=== PATIENT | female | born 1990 | race Caucasian/White ===

== ENCOUNTER 2022-04-03 09:46 | Observation (INO) | payer BC ==
[2022-04-03 10:55] VITALS: BP 128/74; PULSE 78; O2SAT 98
== END 2022-04-03 11:40 | disposition home or self-care (01) ==
LOC: MED SURG 09:46
PROVIDERS: ADMIT Family Medicine; ATTEND Family Medicine
DX: Z34.83 Encounter for supervision of other normal pregnancy, third trimester (principal); Z3A.38 38 weeks gestation of pregnancy
CPT/HCPCS: G0378

== ENCOUNTER 2022-04-07 00:23 | Inpatient (IN) | payer BC ==
[2022-04-07] MEDS ORDERED: TYLENOL EXTRA STRENGTH 500 MG PO PRN ×2 (05:00→10:23)
[2022-04-07] MEDS ORDERED: Zofran 4 MG/2 ML VIAL IV PRN (05:00)
[2022-04-07] MEDS ORDERED: OMNIPEN 2 GM ONE (05:02)
[2022-04-07] MEDS ORDERED: Sodium Chloride 100ML MINI-BAG PLUS 100 ML IV ONE (05:04)
[2022-04-07 05:31] LABS: Absolute Neutrophil Ct (ANC) 11.06 x10^3/uL (1.4-6.9); Basophil (Absolute #) 0.05 x10^3/uL (0-0.4); Eosinophil % 0.4 % (0.00-5.0); Eosinophil (Absolute #) 0.06 x10^3/uL (0-0.5); Hematocrit 34.5 % (35-47); Hemoglobin 11.7 g/dL (12.0-16.0); Lymphocytes % 11.8 % (24.0-44.0); Mean Cell Volume 84.8 fL (78-100); Mean Corpuscular Hemoglobin 28.7 pg (26-32); Mean Corpuscular Hgb Concent. 33.9 g/dL (32-36); Mean Platelet Volume 9.9 fL (7.5-11.0); Monocyte (Absolute #) 0.52 x10^3/uL (0.0-1.3); Monocytes % 3.8 % (0.0-12.0); Neutrophil % 81.9 % (36.0-66.0); Platelet Count 148 x10^3/uL (150-450); Red Blood Count 4.07 x10^6/uL (4.1-5.4); Red Cell Distribution Width 15.9 % (11.5-14.0); White Blood Count 13.5 x10^3/uL (4.0-10.5)
[2022-04-07 05:43] LABS: Crystals Unidentified 25-50 /HPF (NEGATIVE); Epithelial Cells RARE /HPF (FEW); Mucus SLIGHT /HPF (NEGATIVE)
[2022-04-07 05:48] LABS: Appearance CLEAR (CLEAR); Bilirubin NEGATIVE (NEGATIVE); Glucose NEGATIVE (NEGATIVE); Ketones TRACE (NEGATIVE); Nitrite NEGATIVE (NEGATIVE); Protein,Urine Dip NEGATIVE (Negative); Specific Gravity 1.025 (1.005-1.025); Urobilinogen 0.2 mg/dL (0-1)
[2022-04-07 05:49] LABS: RBC NEGATIVE Ery/ul (0-5)
[2022-04-07 05:50] LABS: Dipstick done @ ? MAIN LAB; Urine Cultured Indicated? NO
[2022-04-07 05:51] LABS: Amphetamine,Urine NEGATIVE (NEGATIVE); Barbiturate,Urine NEGATIVE (NEGATIVE); Benzodiazepine,Urine NEGATIVE (NEGATIVE); Cocaine,Urine NEGATIVE (NEGATIVE); Methadone,Urine NEGATIVE (NEGATIVE); Opiate,Urine NEGATIVE (NEGATIVE); PCP,Urine NEGATIVE (NEGATIVE); THC,Urine NEGATIVE (NEGATIVE)
[2022-04-07] MEDS ORDERED: PITOCIN 30 UNITS/ LR 500 ML 30 UNITS/500 ML PLAST..BAG IV SCH ×2 (06:00→08:00)
[2022-04-07] MEDS ORDERED: OMNIPEN 2 GM*** 2 G in Sodium Chloride 100ML MINI-BAG PLUS 100 ML IV ONE (06:00)
[2022-04-07] MEDS ORDERED: BRETHINE 1 MG/ML SQ PRN (06:00)
[2022-04-07] MEDS ORDERED: Lactated Ringers 1,000 ML IV SCH (06:00)
[2022-04-07 06:12] LABS: ABO TYPING A; Antibody Screen NEGATIVE (NEGATIVE); RH TYPING POSITIVE
[2022-04-07] MEDS ORDERED: Lactated Ringers 1,000 ML IV ONE (08:00)
[2022-04-07] MEDS ORDERED: FENTANYL 2 MCG-BUPIV 0.125%-NS 250 ML Epidur 250 ML EPIDURAL SCH (08:00)
[2022-04-07] MEDS ORDERED: Ephedrine Sulfate 50 MG/ML IV PRN (08:00)
[2022-04-07] MEDS ORDERED: XYLOCAINE 1% HCL 20 ML MDV IJ PRN (08:00)
[2022-04-07] MEDS ORDERED: OMNIPEN 1 GM*** 1 GM in Sodium Chloride 100ML MINI-BAG PLUS 100 ML IV SCH (10:00)
[2022-04-07] MEDS ORDERED: TUCKS TP PRN (10:23)
[2022-04-07] MEDS ORDERED: CORTISONE 1% CREAM TP PRN (10:23)
[2022-04-07] MEDS ORDERED: Anucort-HC SUPPOSITORY PR PRN (10:23)
[2022-04-07] MEDS ORDERED: Dulcolax 10 MG SUPP PR PRN (10:23)
[2022-04-07] MEDS ORDERED: Dermoplast Spray TP PRN (10:23)
[2022-04-07] MEDS ORDERED: Ambien 10 MG PO PRN (10:23)
[2022-04-07] MEDS ORDERED: LANSINOH 40 GM TOP PRN (10:23)
[2022-04-07] MEDS ORDERED: Mylicon 80MG PO PRN (10:23)
[2022-04-07] MEDS ORDERED: Adacel Vial IM ONE (13:00)
[2022-04-07] MEDS: MOTRIN 400 MG PO PRN (20:19)
[2022-04-07] MEDS: Docusate Sodium 100 MG PO SCH (20:20)
[2022-04-08] MEDS: MOTRIN 400 MG PO PRN ×2 (03:08→15:37)
[2022-04-08 03:28] VITALS: O2SAT 98
[2022-04-08 05:07] LABS: Absolute Neutrophil Ct (ANC) 10.13 x10^3/uL (1.4-6.9); Basophil (Absolute #) 0.05 x10^3/uL (0-0.4); Eosinophil % 0.5 % (0.00-5.0); Eosinophil (Absolute #) 0.07 x10^3/uL (0-0.5); Lymphocyte (Absolute #) 1.98 x10^3/uL (1.0-4.6); Mean Cell Volume 85.6 fL (78-100); Mean Corpuscular Hemoglobin 29.4 pg (26-32); Mean Corpuscular Hgb Concent. 34.4 g/dL (32-36); Mean Platelet Volume 10.2 fL (7.5-11.0); Monocytes % 5.3 % (0.0-12.0); Platelet Count 155 x10^3/uL (150-450); Red Blood Count 3.74 x10^6/uL (4.1-5.4); Red Cell Distribution Width 15.9 % (11.5-14.0); White Blood Count 13.2 x10^3/uL (4.0-10.5)
--- NOTE | 2022-04-08 07:59 | PCM.NOTE ---
Date and Time: 04/08/22 0758 Subjective Assessment: doing great, mild lochia, pain controlled. tolerating po, desires tubal Objective Exam General Appearance: no apparent distress, alert Neurologic Exam: alert, oriented x 3 Respiratory Exam: normal breath sounds, lungs clear, No respiratory distress Cardiovascular Exam: regular rate/rhythm, normal heart sounds Gastrointestinal/Abdomen Exam: soft, No tenderness, No mass OBJECTIVE DATA Vital Signs: Vital Signs - 24 hr Temp Pulse Resp BP BP Pulse Ox 04/08/22 03:00 97.9 F 81 20 106/59 98 04/07/22 20:00 98.4 F 77 18 96/51 97 04/07/22 16:00 20 04/07/22 14:00 75 20 116/58 04/07/22 13:00 76 20 117/58 04/07/22 12:20 76 20 117/58 04/07/22 12:00 82 20 114/56 04/07/22 11:40 76 18 105/56 04/07/22 11:25 69 20 110/55 04/07/22 11:10 96 H 20 132/50 04/07/22 10:45 77 20 143/64 04/07/22 10:30 83 20 126/65 04/07/22 10:15 86 20 125/66 04/07/22 10:00 87 18 121/65 98 04/07/22 09:45 87 18 130/62 98 04/07/22 09:30 83 18 127/82 04/07/22 09:15 70 18 134/66 04/07/22 09:00 74 18 142/65 04/07/22 08:45 71 18 154/70 04/07/22 08:30 67 18 137/67 04/07/22 08:15 88 22 128/66 04/07/22 08:00 76 20 108/55 Pain Assessment - Last Documented Pain Intensity [Lower Anterior 5 ] Pain Intensity 0 Pain Scale Used 0-10 Pain Scale Intake and Output: Intake & Output 04/05/22 04/06/22 04/07/22 04/08/22 11:59 11:59 11:59 11:59 Intake Total 1000 2000 Balance 1000 2000 Weight 108.409 kg Lab Results: Lab Results-Last 24 Hours 04/08/22 Range/Units 04:00 WBC 13.2 H (4.0-10.5) x10^3/uL RBC 3.74 L (4.1-5.4) x10^6/uL Hgb 11.0 L (12.0-16.0) g/dL Hct 32.0 L (35-47) % MCV 85.6 (78-100) fL MCH 29.4 (26-32) pg MCHC 34.4 (32-36) g/dL RDW 15.9 H (11.5-14.0) % Plt Count 155 (150-450) x10^3/uL MPV 10.2 (7.5-11.0) fL Gran % 77.0 H (36.0-66.0) % Immature Gran % (Auto) 1.8 H (0.00-0.4) % Nucleat RBC Rel Count 0.0 (0.00-0.1) % Eos # (Auto) 0.07 (0-0.5) x10^3/uL Immature Gran # (Auto) 0.24 H (0.00-0.03) x10^3u/L Absolute Lymphs (auto) 1.98 (1.0-4.6) x10^3/uL Absolute Monos (auto) 0.70 (0.0-1.3) x10^3/uL Absolute Nucleated RBC 0.00 (0.00-0.01) x10^3u/L Lymphocytes % 15.0 L (24.0-44.0) % Monocytes % 5.3 (0.0-12.0) % Eosinophils % 0.5 (0.00-5.0) % Basophils % 0.4 (0.0-0.4) % Absolute Granulocytes 10.13 H (1.4-6.9) x10^3/uL Basophils # 0.05 (0-0.4) x10^3/uL Assessment/Plan (1) Vaginal delivery Current Visit: No Status: Acute Assessment & Plan: routine care (2) Request for sterilization Current Visit: Yes Status: Acute Assessment & Plan: will refer for lap tubal Code(s): Z30.2 - ENCOUNTER FOR STERILIZATION
[2022-04-08 10:44] LABS: HBsAg Screen Negative (Negative)
[2022-04-08] MEDS: FERREX 150 PO SCH (11:03)
[2022-04-08] MEDS: Docusate Sodium 100 MG PO SCH ×2 (11:03→21:20)
[2022-04-09] MEDS: MOTRIN 400 MG PO PRN (06:13)
--- NOTE | 2022-04-09 09:34 | PCM.DS ---
Discharge Summary Date of Admission: 04/07/22 06:00 Admitting Physician: DEMARIO DALE Consults: Consults on Case 04/07/22 08:00 Notify Anesthesia Provider PRN 04/07/22 14:01 Navigation ONCE Primary Care Provider: DEMARIO DALE Allergies Allergies cephalexin monohydrate [From Keflex] Adverse Reaction (Mild, Verified 04/07/22 05:13) Vomiting NOT TRUE ALLERGY, PT JUST PERFERS NOT TO TAKE CAUSE IT MAKES HER NAUSEOUS Hospital Summary - Hospital Course Hospital Course: patient induced at 39wks elective induction, GBS+ received ampicillin, delivered a term viable male infant with no complications. , well bonded and doing great. - Vitals & Intake/Output Vital Signs: Vital Signs Temperature 98.2 F 04/09/22 05:30 Pulse Rate 101 H 04/08/22 21:15 Respiratory Rate 18 04/09/22 05:30 Blood Pressure 121/57 04/08/22 21:15 O2 Sat by Pulse Oximetry 98 04/08/22 09:00 Intake & Output: Intake & Output 04/06/22 04/07/22 04/08/22 04/09/22 11:59 11:59 11:59 11:59 Intake Total 1000 1999 175 Balance 1000 1999 175 Weight 108.409 kg - Lab Result Diagrams: 04/08/22 04:00 Lab Results-Last 24 Hrs: Lab Results-Last 24 Hours 04/07/22 Range/Units 05:20 Hep Bs Antigen Negative (Negative) Discharge Exam General Appearance: no apparent distress Neurologic Exam: alert, oriented x 3 Respiratory Exam: normal breath sounds, lungs clear, No respiratory distress Cardiovascular Exam: regular rate/rhythm, normal heart sounds Gastrointestinal/Abdomen Exam: soft, other (fundus firm, u/2), No tenderness, No mass Extremity Exam: normal inspection, normal range of motion Skin Exam: normal color, warm, dry Final Diagnosis/Problem List - Final Discharge Diagnosis/Problem (1) Vaginal delivery Current Visit: No Status: Acute (2) Request for sterilization Current Visit: Yes Status: Acute Code(s): Z30.2 - ENCOUNTER FOR STERILIZATION - Discharge Disposition: Home, Self-Care Condition: Stable Prescriptions: Continue Vits W-Ca,Fe,FA(<1Mg) [] 1 each PO DAILY Follow up with: DEMARIO DALE MD [Primary Care Provider] -
[2022-04-09] MEDS: FERREX 150 PO SCH (10:47)
[2022-04-09] MEDS: Docusate Sodium 100 MG PO SCH (10:47)
[2022-04-09 12:45] VITALS: BP 109/59; PULSE 110
== END 2022-04-09 11:38 | disposition home or self-care (01) | DRG 807 ==
LOC: OB 04:55 → OBSVTOIN 06:00 → OB 06:00
PROVIDERS: ADMIT Family Medicine; ATTEND Family Medicine
PROC: 10E0XZZ Delivery of Products of Conception, External Approach (ICD-10-PCS; principal; 2022-04-07)
DX: O80 Encounter for full-term uncomplicated delivery (principal); Z37.0 Single live birth; Z3A.39 39 weeks gestation of pregnancy; Z20.828 Contact with and (suspected) exposure to other viral communicable diseases
CPT/HCPCS: 36415; 80307; 81015; 85025; 86850; 86900; 86901; 87340; 90471; 90715; J0290; J2590; A9270-GY

== ENCOUNTER 2022-05-20 05:44 | Day surgery (SDC) | payer BC ==
[2022-05-20] MEDS ORDERED: Sensorcaine 0.25% 10 ML ONE (06:22)
[2022-05-20] MEDS ORDERED: Lactated Ringers 1,000 ML IV SCH ×2 (06:30)
[2022-05-20] MEDS ORDERED: Pepcid 20 MG VIAL IV ONE (06:52)
[2022-05-20] MEDS ORDERED: Versed 2 MG/2 ML Injection IV PRN (06:52)
[2022-05-20] MEDS ORDERED: Reglan 10 MG/2 ML IV ONE (06:52)
[2022-05-20] MEDS ORDERED: CLINDAMYCIN-D5W 900 MG/50 ML*** 900 MG/50 ML BAG IV ONE (07:31)
[2022-05-20] MEDS ORDERED: BRIDION 200MG/2ML IV ONE (07:41)
[2022-05-20] MEDS ORDERED: Decadron 4 MG INJ ONE (07:41)
[2022-05-20] MEDS ORDERED: Zofran 4 MG/2 ML VIAL ONE (07:41)
[2022-05-20] MEDS ORDERED: Xylocaine-Mpf 2% 5 Ml Vial ONE (07:41)
[2022-05-20] MEDS ORDERED: DIPRIVAN 200 MG/20 ML IV ONE (07:41)
[2022-05-20] MEDS ORDERED: Zemuron 100 MG/10 ML ONE (07:41)
[2022-05-20] MEDS ORDERED: Pre-Attached Lta Kit TP ONE (07:42)
[2022-05-20] MEDS ORDERED: SUBLIMAZE 100 MCG/2 ML ONE ×2 (07:43→09:00)
[2022-05-20] MEDS ORDERED: ATROPINE SULFATE 1MG ONE (07:57)
[2022-05-20] MEDS ORDERED: Ephedrine Sulfate 50 MG/ML ONE (07:59)
[2022-05-20] MEDS ORDERED: CLINDAMYCIN-D5W 900 MG/50 ML*** 900 MG/50 ML BAG IV SCH (08:00)
[2022-05-20] MEDS ORDERED: DEXMEDETOMIDINE 80 MCG/20ML-NS IV ONE (08:08)
[2022-05-20] MEDS ORDERED: TORAdol 30 mg Injection ONE (08:50)
[2022-05-20 10:43] VITALS: O2SAT 97
[2022-05-20 10:47] VITALS: BP 115/87; PULSE 78
[2022-05-20 14:53] LABS: Appearance CLEAR (CLEAR); Bilirubin NEGATIVE (NEGATIVE); Glucose NEGATIVE (NEGATIVE)
[2022-05-20 14:54] LABS: Ketones NEGATIVE (NEGATIVE); Nitrite NEGATIVE (NEGATIVE); Protein,Urine Dip NEGATIVE (Negative); RBC TRACE-INTACT Ery/ul (0-5); Urobilinogen 0.2 mg/dL (0-1)
[2022-05-20 16:58] LABS: Dipstick done @ ? MAIN LAB
--- NOTE | 2022-05-21 08:55 | OP ---
SURGERY DATE/TIME: 05/20/2022 0737 PREOPERATIVE DIAGNOSIS: Multiparity desiring tubal sterilization. POSTOPERATIVE DIAGNOSIS: Multiparity desiring tubal sterilization. PROCEDURE: Laparoscopic tubal sterilization via Falope ring application as well as bipolar sterilization. SURGEON: Mustapha Lopez D.O. [facility] CONSULTANT: Solange Humphries electronic tech. ANESTHESIA: General. ESTIMATED BLOOD LOSS: Minimal. COMPLICATIONS: None. INDICATIONS: The risks, benefits, indications and alternatives of the procedure were reviewed with the patient prior to the procedure and desires to have this procedure as a possible means to alleviate her current medical condition. DESCRIPTION OF PROCEDURE AND FINDINGS: From this point the patient is taken to the operating room, given general sedation, placed in dorsal lithotomy position, prepped and draped in the usual sterile fashion. A weighted speculum is then placed in the patient's vagina and the anterior lip of the cervix is grasped with a single tooth tenaculum. From this point a uterine manipulator was then inserted in through the endocervical canal as a means to manipulate the uterus. Attention was then turned to the patient's abdomen where a 5 mm skin incision was made in the umbilical fold. A 5 mm trocar and sleeve were advanced under direct visualization where pneumoperitoneum was obtained with 4 liters of CO2 gas. An additional incision was made approximately 2 cm above the symphysis pubis where an 8 mm incision was made and an 8 mm trocar and sleeve were advanced under direct visualization. A survey of the patient's pelvis and abdomen revealed entirely normal anatomy. From this point the uterus is elevated and the left fallopian tube was identified. The Falope ring applicator was then placed on the left fallopian tube on the isthmic region however was not placed in the correct position secondary to failed instrumentation. From this point the bipolar instrument was used and coagulated on three contiguous regions on the fallopian tube and was done so without complication. Hemostasis was obtained. From this point Falope ring applicator was reloaded and attempted on the right fallopian tube on isthmic region and was displaced on the tube with a good size knuckle of tube. However, there did appear to be bleeding within the mesosalpinx and bipolar was used to coagulate it on the right mesosalpinx and hemostasis was obtained. From this point, all instruments were removed from the patient's abdominal region and the incisions were closed with 4-0 Monocryl suture. The patient was then taken out of the dorsal lithotomy position, was taken out of anesthesia and was then taken to the recovery room in stable condition.
== END 2022-05-20 10:30 | disposition home or self-care (01) ==
LOC: SDC 05:44
PROVIDERS: ATTEND Obstetrics & Gynecology
DX: Z30.2 Encounter for sterilization (principal)
CPT/HCPCS: 81001; 81025; 87086; 96374; 96375; J0461; J1100; J1885; J2250; J2405; J2704; J3010

== ENCOUNTER 2024-07-10 09:08 | Emergency (ER) | payer OTHER ==
--- NOTE | 2024-07-10 09:15 | ERPHSYRPT ---
- History of Present Illness Time Seen by Provider: 07/10/24 09:14 Source: patient, family Exam Limitations: no limitations Physician History: Pt has had Nausea a couple of weeks, and past 2 days urinary burning . hematuria, and right flank/back pain. She went to urgent care and they confirmed this but needed authorization for a CT and advised her to ER if symptoms increased. So this is what happened and she reports here this am for more eval/Tx. Normal mental status and neuro exam. Abd soft nontender without peritoneal signs, distension , or masses. chest clear. Ht reg without M. No blood thinners or bleeding disorders known to pt. No Hx of trauma. Discussed risks/benefits with pt and family of Tx Toradol, Zofran, CT Abd, UA, HCG, Lactate, CBC, CMP, Bharti, Lipase, and they wish to proceed. So these are ordered. Results discussed with pt and family. Timing/Duration: day(s) Severity: moderate Associated Symptoms: nausea, vomiting, abdominal pain Allergies/Adverse Reactions: cephalexin monohydrate [From Keflex] Adverse Reaction (Mild, Verified 07/10/24 09:24) Vomiting NOT TRUE ALLERGY, PT JUST PERFERS NOT TO TAKE CAUSE IT MAKES HER NAUSEOUS Hx Tetanus, Diphtheria Vaccination/Date Given: Yes Hx Influenza Vaccination/Date Given: No Hx Pneumococcal Vaccination/Date Given: No - Review of Systems Constitutional: No Fever, No Chills Eyes: No Symptoms Ears, Nose, & Throat: No Symptoms Respiratory: No Cough, No Dyspnea Cardiac: No Chest Pain, No Edema, No Syncope Abdominal/Gastrointestinal: Abdominal Pain, Nausea, Vomiting, Diarrhea Genitourinary Symptoms: Dysuria, Frequency, Hematuria, Flank Pain Musculoskeletal: Back Pain, No Neck Pain, No Fall, No Injury Skin: No Rash Neurological: No Dizziness, No Focal Weakness, No Sensory Changes Psychological: No Symptoms Endocrine: No Symptoms Hematologic/Lymphatic: No Symptoms Immunological/Allergic: No Symptoms All Other Systems: Reviewed and Negative - Past Medical History Pertinent Past Medical History: Yes Neurological History: Migraines ENT History: No Pertinent History Cardiac History: No Pertinent History Respiratory History: No Pertinent History Endocrine Medical History: No Pertinent History Musculoskeletal History: No Pertinent History GI Medical History: No Pertinent History History: No Pertinent History Psycho-Social History: No Pertinent History Female Reproductive Disorders: No Pertinent History, Endometriosis - Past Surgical History Past Surgical History: Yes Neuro Surgical History: No Pertinent History Cardiac: No Pertinent History Respiratory: No Pertinent History Gastrointestinal: Cholecystectomy Genitourinary: No Pertinent History Musculoskeletal: No Pertinent History Female Surgical History: Other Other Surgical History: surgery on fallopian tubes, endometriosis on right tube. lasik eye surgery - Female History Hx Last Menstrual Period: 2 DAYS AGO - Social History Smoking Status: Never smoker Exposure to second hand smoke: No Drug Use: none Patient Lives Alone: Yes - Nursing Vital Signs Nursing Vital Signs: Initial Vital Signs Temperature 97.2 F 07/10/24 09:13 Pulse Rate 73 07/10/24 09:13 Blood Pressure 127/93 07/10/24 09:13 O2 Sat by Pulse Oximetry 99 07/10/24 09:13 Pain Scale Pain Intensity 0 - Physical Exam General Appearance: no apparent distress, alert Eye Exam: PERRL/EOMI, eyes nml inspection Ears, Nose, Throat Exam: normal ENT inspection, TMs normal, pharynx normal, moist mucous membranes Neck Exam: normal inspection, non-tender, supple, full range of motion Respiratory Exam: normal breath sounds, lungs clear, No respiratory distress Cardiovascular Exam: regular rate/rhythm, normal heart sounds, normal peripheral pulses Gastrointestinal/Abdomen Exam: soft, normal bowel sounds, No tenderness, No distention, No mass, No guarding, No pulsatile mass, No rebound Pelvic Exam: deferred Rectal Exam: deferred Back Exam: normal inspection, normal range of motion, No CVA tenderness, No vertebral tenderness Extremity Exam: normal inspection, normal range of motion, pelvis stable Neurologic Exam: alert, oriented x 3, cooperative, normal mood/affect, nml cerebellar function, nml station & gait, sensation nml, No motor deficits Skin Exam: normal color, warm, dry, No rash Lymphatic Exam: No adenopathy SpO2 Interpretation: normal SpO2: 99 O2 Delivery: Room Air - CT Exams Abdomen/Pelvis CT Interpretation: Tele-radiologist Report, Normal Appendix, Other ( heptomegally, splenomegally. umb hernia) Ordered Tests: Active Orders 24 hr Category Date Time Status ABDOMEN AND PELVIS W/0 CONTRAS [CT] Stat Exams 07/10/24 11:02 Completed AMYLASE Stat Lab 07/10/24 10:38 Completed CBC W DIFF Stat Lab 07/10/24 10:38 Completed CMP Stat Lab 07/10/24 10:38 Completed CULTURE,URINE Stat Lab 07/10/24 09:55 Received HCG QUALITATIVE, SERUM Stat Lab 07/10/24 10:38 Completed LIPASE Stat Lab 07/10/24 10:38 Completed Lactic Acid Stat Lab 07/10/24 10:35 Completed UA W/RFX UR CULTURE Stat Lab 07/10/24 09:55 Completed Medication Summary Discontinued Medications Generic Name Dose Route Start Last Admin Trade Name Julio Cesarq PRN Reason Stop Dose Admin Ketorolac Tromethamine 60 mg 07/10/24 10:14 07/10/24 10:26 Ketorolac Tromethamine 30 Mg/Ml Inj IM 07/10/24 10:15 60 mg STAT ONE Administration Ketorolac Tromethamine Confirm 07/10/24 10:26 Ketorolac Tromethamine 30 Mg/Ml Inj Administered 07/10/24 10:27 Dose 60 mg .ROUTE .STK-MED ONE Levofloxacin 250 mg 07/10/24 10:57 07/10/24 11:07 Levofloxacin 250 Mg Tab PO 07/10/24 10:58 250 mg STAT ONE Administration Levofloxacin Confirm 07/10/24 11:07 Levofloxacin 250 Mg Tab Administered 07/10/24 11:08 Dose 250 mg .ROUTE .STK-MED ONE Ondansetron HCl 4 mg 07/10/24 10:10 07/10/24 10:27 Zofran 4 Mg/Udtablet Orally Disintegrating PO 07/10/24 10:11 4 mg STAT ONE Administration Ondansetron HCl Confirm 07/10/24 10:26 Zofran 4 Mg/Udtablet Orally Disintegrating Administered 07/10/24 10:27 Dose 4 mg .ROUTE .STK-MED ONE Lab/Rad Data: Laboratory Result Diagrams 07/10/24 10:38 07/10/24 10:38 Laboratory Results 07/10/24 07/10/24 07/10/24 Range/Units 10:38 10:38 10:38 WBC 7.6 (3.98-10.04) x10^3/uL RBC 5.30 H (3.93-5.22) x10^6/uL Hgb 15.0 (11.2-15.7) g/dL Hct 44.1 (34.1-44.9) % MCV 83.2 (79.4-94.8) fL MCH 28.3 (25.6-32.2) pg MCHC 34.0 (32.2-35.5) g/dL RDW 13.4 (11.7-14.4) % Plt Count 170 L (182-369) x10^3/uL MPV 10.3 (9.4-12.3) fL Gran % 73.8 H (34.0-71.1) % Immature Gran % (Auto) 0.3 (0.001-0.429) % Nucleat RBC Rel Count 0.0 (0.00-0.2) % Eos # (Auto) 0.11 (0.04-0.36) x10^3/uL Immature Gran # (Auto) 0.02 (0.001-0.031) x10^3u/L Absolute Lymphs (auto) 1.46 (1.18-3.74) x10^3/uL Absolute Monos (auto) 0.35 (0.24-0.86) x10^3/uL Absolute Nucleated RBC 0.00 (0.00-0.012) x10^3u/L Lymphocytes % 19.2 L (19.3-51.7) % Monocytes % 4.6 L (4.7-12.5) % Eosinophils % 1.4 (0.7-5.8) % Basophils % 0.7 (0.1-1.2) % Absolute Granulocytes 5.61 (1.56-6.13) x10^3/uL Basophils # 0.05 (0.01-0.08) x10^3/uL Sodium 142 (135-145) mmol/L Potassium 4.6 (3.5-5.1) mmol/L Chloride 108 H (98-107) mmol/L Carbon Dioxide 21 L (22-30) mmol/L Anion Gap 17.1 H (5-15) MEQ/L BUN 9 (7-17) mg/dL Creatinine 0.77 (0.52-1.04) mg/dL Estimated GFR 105.0 ML/MIN Glucose 111 H (74-106) mg/dL Lactic Acid (0.4-2.0) Calcium 9.3 (8.4-10.2) mg/dL Total Bilirubin 0.70 (0.2-1.3) mg/dL AST 68 H (14-36) U/L ALT 82 H (0-35) U/L Alkaline Phosphatase 47 (38-126) U/L Serum Total Protein 7.8 (6.3-8.2) g/dL Albumin 4.6 (3.5-5.0) g/dL Amylase 100 (30-110) U/L Lipase 86 (23-300) U/L Serum HCG, Qual NEGATIVE (NEGATIVE) Urine Color (Yellow) Urine Appearance (Clear) Urine pH (4.6-8.0) Ur Specific [place] (1.005-1.030) Urine Protein (Negative) Urine Glucose (UA) (Negative) mg/dL Urine Ketones (Negative) Urine Blood (Negative) Urine Nitrite (Negative) Urine Bilirubin (Negative) Urine Urobilinogen (0.2) mg/dL Ur Leukocyte Esterase (Negative) U Hyaline Cast (Auto) (0-2) /LPF Urine Microscopic RBC (0-5) /HPF Urine Microscopic WBC (0-5) /HPF Ur Epithelial Cells (None Seen) /HPF Urine Bacteria (None Seen) /HPF Urine Culture Reflexed (NO) 07/10/24 07/10/24 Range/Units 10:35 09:55 WBC (3.98-10.04) x10^3/uL RBC (3.93-5.22) x10^6/uL Hgb (11.2-15.7) g/dL Hct (34.1-44.9) % MCV (79.4-94.8) fL MCH (25.6-32.2) pg MCHC (32.2-35.5) g/dL RDW (11.7-14.4) % Plt Count (182-369) x10^3/uL MPV (9.4-12.3) fL Gran % (34.0-71.1) % Immature Gran % (Auto) (0.001-0.429) % Nucleat RBC Rel Count (0.00-0.2) % Eos # (Auto) (0.04-0.36) x10^3/uL Immature Gran # (Auto) (0.001-0.031) x10^3u/L Absolute Lymphs (auto) (1.18-3.74) x10^3/uL Absolute Monos (auto) (0.24-0.86) x10^3/uL Absolute Nucleated RBC (0.00-0.012) x10^3u/L Lymphocytes % (19.3-51.7) % Monocytes % (4.7-12.5) % Eosinophils % (0.7-5.8) % Basophils % (0.1-1.2) % Absolute Granulocytes (1.56-6.13) x10^3/uL Basophils # (0.01-0.08) x10^3/uL Sodium (135-145) mmol/L Potassium (3.5-5.1) mmol/L Chloride (98-107) mmol/L Carbon Dioxide (22-30) mmol/L Anion Gap (5-15) MEQ/L BUN (7-17) mg/dL Creatinine (0.52-1.04) mg/dL Estimated GFR ML/MIN Glucose (74-106) mg/dL Lactic Acid 1.5 (0.4-2.0) Calcium (8.4-10.2) mg/dL Total Bilirubin (0.2-1.3) mg/dL AST (14-36) U/L ALT (0-35) U/L Alkaline Phosphatase (38-126) U/L Serum Total Protein (6.3-8.2) g/dL Albumin (3.5-5.0) g/dL Amylase (30-110) U/L Lipase (23-300) U/L Serum HCG, Qual (NEGATIVE) Urine Color Yellow (Yellow) Urine Appearance Clear (Clear) Urine pH 5.5 (4.6-8.0) Ur Specific [place] 1.020 (1.005-1.030) Urine Protein Negative (Negative) Urine Glucose (UA) Negative (Negative) mg/dL Urine Ketones Negative (Negative) Urine Blood Negative (Negative) Urine Nitrite Negative (Negative) Urine Bilirubin Negative (Negative) Urine Urobilinogen 0.2 (0.2) mg/dL Ur Leukocyte Esterase Small A (Negative) U Hyaline Cast (Auto) NONE SEEN (0-2) /LPF Urine Microscopic RBC 0-2 (0-5) /HPF Urine Microscopic WBC 11-20 A (0-5) /HPF Ur Epithelial Cells Moderate A (None Seen) /HPF Urine Bacteria Few A (None Seen) /HPF Urine Culture Reflexed YES (NO) - Progress Progress: improved, re-examined Progress Note: 07/10/24 10:59 Discussed risk/benefit of levaquin Tx with pt and family and they wish to proceed. Advised pt and family of elevated LFTs, decreased platelets, slight elevation DBP, non-fasting glucose, and need for f/u PMDs. 07/10/24 11:52 07/10/24 11:54 Pain improved after Tx. 07/10/24 12:53 Discussed with pt and family that we have not yet determined a cause for her symptoms but will treat UTI that we did find and that additional pathology may be evolving undetected THey wish outpt f/u with PMD without further eval in ER or hospital admission at this time and have the capacity to make this choice. 07/10/24 12:55 Counseled pt/family regarding: lab results, diagnosis, need for follow-up, rad results Medical Desision Making - Independent Historian Additional History obtained from: Family - Discussion of managment Reviewed:: Test results, Need for additional workup Agreed on:: Treatment plan, need for follow-up - Diagnostic Testing Diagnostic test were ordered, analyzed, and reviewed by me: Yes Radiological Interpretation: Interpreted by me, Reviewed by me, Teleradiologist Report - Risk of complications The pt has a mod risk of morbidity or mortality based on: Need for prescription drug management The pt has a high risk of morbidity or mortality based on: Decision regarding hospitilization or escalation of hosp level of care - Departure Departure Disposition: Home Clinical Impression: right flank pain unknown etiology, UTI (urinary tract infection), Fatty liver, Thrombocytopenia, Elevated liver enzymes Condition: Good Critical Care Time: No Referrals: DEMARIO DALE MD [Primary Care Provider] - Follow up/PCP as directed Instructions: Flank Pain, Urinary Tract Infection, Adult ED, Metabolic dysfunction-associated steatotic liver disease, Kidney Stones (DC) Additional Instructions: ALthough we have not determined a precise cause for your symptoms , we are treating your urinary infection. Since there may be other conditions developing it is important to complete your workup and followup with your this week. Also for your low platelets, elevated liver tests, fatty liver, possible kidney stones. Return meantime if not improving or any symptoms of concern such as vomiting or fever or other concerns. Prescriptions: Levofloxacin [Levofloxacin 500 MG Tablet] 500 mg PO QAM #10 tablet
[2024-07-10 09:24] VITALS: PULSE 73; TEMP 97.2
[2024-07-10] MEDS: TORAdol 30 mg Injection IM ONE (10:26)
[2024-07-10] MEDS ORDERED: TORAdol 30 mg Injection ONE (10:26)
[2024-07-10] MEDS ORDERED: ZOFRAN ODT 4 MG ONE (10:26)
[2024-07-10] MEDS: ZOFRAN ODT 4 MG PO ONE (10:27)
[2024-07-10 10:39] LABS: Absolute Neutrophil Ct (ANC) 5.61 x10^3/uL (1.56-6.13); BASOPHIL % 0.7 % (0.1-1.2); Basophil (Absolute #) 0.05 x10^3/uL (0.01-0.08); Eosinophil % 1.4 % (0.7-5.8); Eosinophil (Absolute #) 0.11 x10^3/uL (0.04-0.36); Hematocrit 44.1 % (34.1-44.9); IMMATURE GRAN # 0.02 x10^3u/L (0.001-0.031); IMMATURE GRAN % 0.3 % (0.001-0.429); Lymphocyte (Absolute #) 1.46 x10^3/uL (1.18-3.74); Lymphocytes % 19.2 % (19.3-51.7); Mean Cell Volume 83.2 fL (79.4-94.8); Mean Corpuscular Hemoglobin 28.3 pg (25.6-32.2); Mean Platelet Volume 10.3 fL (9.4-12.3); Monocyte (Absolute #) 0.35 x10^3/uL (0.24-0.86); Monocytes % 4.6 % (4.7-12.5); Neutrophil % 73.8 % (34.0-71.1); Platelet Count 170 x10^3/uL (182-369); Red Cell Distribution Width 13.4 % (11.7-14.4); White Blood Count 7.6 x10^3/uL (3.98-10.04)
[2024-07-10 10:50] LABS: HCG SERUM TEST NEGATIVE (NEGATIVE)
[2024-07-10 10:51] LABS: Appearance Clear (Clear); Bacteria Few /HPF (None Seen); Bilirubin Negative (Negative); Blood Negative (Negative); Epithelial Cells Moderate /HPF (None Seen); Glucose, Urine Negative (Negative); Hyaline Casts NONE SEEN /LPF (0-2); Ketones Negative (Negative); Leukocyte Esterase Small (Negative); Nitrite Negative (Negative); Ph 5.5 (4.6-8.0); Protein,Urine Dip Negative (Negative); RBC 0-2 /HPF (0-5); Urobilinogen 0.2 mg/dL (0.2)
[2024-07-10 10:52] LABS: ALBUMIN 4.6 g/dL (3.5-5.0); ANION GAP 17.1 MEQ/L (5-15); BILIRUBIN,TOTAL 0.7 mg/dL (0.2-1.3); Calcium 9.3 mg/dL (8.4-10.2); Creatinine 1 0.77 mg/dL (0.52-1.04); Potassium 4.6 mmol/L (3.5-5.1); Total Protein 7.8 g/dL (6.3-8.2)
[2024-07-10] MEDS: Levofloxacin 250MG Tablet PO ONE (11:07)
[2024-07-10] MEDS ORDERED: Levofloxacin 250MG Tablet ONE (11:07)
--- NOTE | 2024-07-10 11:48 | XRAY ---
CLINICAL HISTORY: Abd pain COMPARISON: prior 02/10/2013 TECHNIQUE: CT scan of the abdomen and pelvis was performed with & without IV contrast. Coronal and sagittal reconstructive images were also obtained.One of the following dose-reduction techniques was utilized for this exam. Automated exposure control, adjustment of the mA and/or kV according to patient size, and use of iterative reconstruction. FINDINGS: Abdomen: The liver is enlarged and measures 18 cm, showing diffuse reduced parenchymal density. No focal parenchymal abnormality. The portal vein, intrahepatic biliary radicals and the bile ducts are normal. Mildly enlarged spleen, no focal lesions, measures 13.6 cm. The pancreas and adrenal glands are unremarkable. The kidneys are unremarkable. They are normal in size and shape. No calculi or hydronephrosis. Surgically removed gall bladder. The ascending colon, the transverse colon, the descending colon, visualized small bowel loops are unremarkable. The appendix is normal in size without raimundo appendiceal fat stranding and without an appendicolith. There is no evidence of significant enlargement of the mesenteric or retroperitoneal lymph nodes. Small omental containing umbilical hernia. Pelvis: The urinary bladder is unremarkable. The rectosigmoid colon is unremarkable. The pelvic structures are unremarkable. Bilateral parauterine pelvic phleboli. The pelvic vasculature is unremarkable. No evidence of pelvic lymphadenopathy. The osseous structures in the pelvis, lower rib cage, and lumbar spine show no abnormality. No lytic or sclerotic bone lesions. Unremarkable lower Ct chest cutstable). IMPRESSION: 1. No acute intra-abdominal abnormality. 2. Fatty hepatomegaly (new finding). 3. Mild splenomegaly (stable). 4. Small omental containing umbilical hernia (minimal increase). Electronically Signed by: Sandor Denny MD. (07/10/2024 11:43:09 EDT)
[2024-07-10 12:47] VITALS: O2SAT 99
[2024-07-10 13:07] VITALS: BP 90/49
== END 2024-07-10 13:07 | disposition home or self-care (01) ==
LOC: ED 09:08
DX: N39.0 Urinary tract infection, site not specified (principal); R10.9 Unspecified abdominal pain; K76.0 Fatty (change of) liver, not elsewhere classified; D69.6 Thrombocytopenia, unspecified; R94.5 Abnormal results of liver function studies; R30.0 Dysuria; R11.0 Nausea; R31.9 Hematuria, unspecified; Z79.899 Other long term (current) drug therapy
CPT/HCPCS: 36415; 74176; 80053; 81001; 82150; 83605; 83690; 84703; 85025; 87086; 96372; 99284; J1885; Q0162; A9270-GY